=== PATIENT | female | born 1940 | race Caucasian/White ===

== ENCOUNTER 2022-04-06 08:10 | Day surgery (SDC) | payer MEDICAID, MEDICARE, OTHER ==
[2022-04-06] VITALS (7 sets, daily range): BP systolic 117–176; BP diastolic 60–83
[~2022-04-06] VITALS: Ht 170.2 cm; Wt 85.9 kg
[2022-04-06] MEDS ORDERED: normal saline 1000ml 1,000 ML IV PRN (08:35)
[2022-04-06] MEDS ORDERED: heparin sodium, porcine/PF 100unit/ml 5ML syringe ONE (10:16)
[2022-04-06] MEDS ORDERED: midazolam 1 mg/ML 2ml injection ONE ×2 (10:16→10:52)
[2022-04-06] MEDS ORDERED: FENTANYL CITRATE/PF 50 MCG/1 ML VIAL ONE ×2 (10:16→10:52)
[2022-04-06] MEDS ORDERED: LIDOcaine 1% 30ml preserv. free vial ONE (10:16)
[2022-04-06] MEDS ORDERED: normal saline 1000ml 1,000 ML IV SCH (10:40)
== END 2022-04-06 12:40 | disposition home or self-care (01) ==
LOC: SSTAY O 08:10
PROVIDERS: ATTEND Radiology Diagnostic Radiology
DX: C50.911 Malignant neoplasm of unspecified site of right female breast (principal); Z79.899 Other long term (current) drug therapy; Z98.890 Other specified postprocedural states
CPT/HCPCS: 36561; 76937; 77001; 99152; 99153; C1769; C1788; C1894; J1642; J2250; J3010; J3490; J7030; A4620; A6449